=== PATIENT | male | born 1960 | race Caucasian/White ===

== ENCOUNTER 2016-12-23 09:40 | Emergency (ER) | payer BC ==
[~2016-12-23] VITALS: Ht 170.2 cm; Wt 80.6 kg
[2016-12-23 09:42] VITALS: BP 155/64; PULSE 80; RESP 18; TEMP 98.5; O2SAT 95
[2016-12-23] MEDS ORDERED: LIDOCAINE HCL 1% 50 ML VIAL INFIL ONE (10:00)
--- NOTE | 2016-12-23 10:02 | PD ---
HPI Chief Complaint: Laceration/Skin Injury Time Seen by Provider: 09:55 Travel History International Travel<30 days: No Contact w/Intl Traveler<30days: No Traveled to known affect area: No History of Present Illness HPI 56-year-old male presents for evaluation of laceration to left fourth finger. Prior to arrival he reports that he had a pickup truck bed on a cart and the pickup truck bed slid and hit his finger. He now has a laceration which is painful, achy, worse with movement. Denies numbness tingling or range of motion limitation. Last tetanus vaccination 1 year ago. PFS Past Medical History Diminished Hearing: No Headaches: Yes Past Surgical History Oral Surgery: Yes ([facility]) Social History Alcohol Use: Yes (COUPLE BEERS, DAILY; 2 BEERS TODAY (10/09/15)) Tobacco Use: No Substance Use: Yes (MARIJUANA, OCCASIONALLY; LAST USED TODAY (10/09/15)) Allergies-Medications (Allergen,Severity, Reaction): Coded Allergies: No Known Allergies (Verified Adverse Reaction, Unknown, 12/23/16) Reported Meds & Prescriptions Reported Meds & Active Scripts Active No Active Prescriptions or Reported Medications Review of Systems General / Constitutional: No: Fever, Chills Musculoskeletal: Positive: Pain, No: Limited ROM Skin: Positive Other (positive for laceration) Neurologic: No: Paresthesia Physical Exam Narrative GENERAL: Well-developed well-nourished male in no acute distress SKIN: Warm and dry. 2 cm jagged laceration to the medial volar aspect of the mid left fourth finger. Mild bleeding with no pulsating blood. HEAD: Atraumatic. Normocephalic. EYES: Pupils equal and round. No scleral icterus. No injection or drainage. ENT: No nasal bleeding or discharge. Mucous membranes pink and moist. NECK: Trachea midline. No JVD. CARDIOVASCULAR: Regular rate and rhythm. No murmur appreciated. RESPIRATORY: No accessory muscle use. Clear to auscultation. Breath sounds equal bilaterally. MUSCULOSKELETAL: Skin as noted above. The patient maintains full sensation on the medial and lateral aspect of the distal left fourth finger. Range of motion is preserved. Capillary refill is preserved. NEUROLOGICAL: Awake and alert. No obvious cranial nerve deficits. Motor grossly within normal limits. Normal speech. Data Data Last Documented VS Vital Signs Date Time Temp Pulse Resp B/P (MAP) Pulse Ox O2 Delivery O2 Flow Rate FiO2 12/23/16 09:42 98.5 80 18 155/64 (94) 95 Orders Orders Finger ([id number]) (12/23/16 ) Lidocaine 1% Inj (50 Ml) (Xylocaine 1% I (12/23/16 10:00) Splint Or Brace Apply/Monitor (12/23/16 10:52) Ed Discharge Order (12/23/16 10:52) [facility] Medical Decision Making Medical Screen Exam Complete: Yes Emergency Medical Condition: Yes Medical Record Reviewed: Yes Differential Diagnosis Cutaneous laceration, tissue avulsion, tendon laceration, open fracture Narrative Course X-ray imaging will be obtained. X-ray imaging reveals no acute fracture. The laceration was repaired with sutures, he verbally consented. He is stable for discharge. Finger splint applied. Procedures Procedure Narrative LACERATION LOCATION: Left fourth finger LENGTH: 2 cm NUMBER OF STITCHES/RAMIREZ: 8 REPAIR: The area of the laceration was prepped with Betadine and sterilely draped. The laceration was infiltrated with 1% lidocaine transthecal block. The wound was copiously irrigated and explored without evidence of foreign body , tendon injury or neurovascular injury. The wound was closed using 4-0 prolene simple interrupted. This was a single layer repair. A sterile dressing was applied. The patient was advised to keep the dressing clean and dry. Patient tolerated the procedure well. Diagnosis Primary Impression: Laceration of left hand Qualified Codes: S61.412A - Laceration without foreign body of left hand, initial encounter Additional Instructions: Wash daily with soap and water and apply antibiotic cream twice a day. Minimize use of left fourth finger. Return in approximately 14 days for suture removal. Med/Other Pt SpecificInfo: Wound Care, Orthopedic Instructions Scripts No Active Prescriptions or Reported Meds Disposition: 01 DISCHARGE HOME Condition: Stable Eugene Alexander Dec 23, 2016 10:02
--- NOTE | 2016-12-23 10:40 | RADRPT ---
EXAM DATE/TIME: 12/23/2016 10:14 [facility] COMPARISON: FINGER LEFT 4TH DIGIT ([id number]), October 09, 2015, 19:41. INDICATIONS : Left 4th digit laceration. MEDICAL HISTORY : None. SURGICAL HISTORY : None. ENCOUNTER: Initial ACUITY: 1 day PAIN SCORE: 7/10 LOCATION: Left 4th digit FINDINGS: 3 views of the left hand fourth digit demonstrate no acute fracture or dislocation. There is a soft t issue laceration along the volar aspect of the mid fourth digit anterior to the middle phalanx. No ra diopaque foreign body is identified in the adjacent middle phalanx demonstrates no abnormality. The r emaining left hand structures demonstrate no acute finding. 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 CONCLUSION: Laceration at the volar aspect of the mid fourth digit. There is no radiopaque foreign body or acute osseous abnormality. Negrito Vargas MD on December 23, 2016 at 10:37 Board Certified Radiologist. This report was verified electronically.
== END 2016-12-23 11:06 | disposition home or self-care (01) ==
LOC: PHEFT 09:40
DX: S61.215A Laceration without foreign body of left ring finger without damage to nail, initial encounter (principal); W20.8XXA Other cause of strike by thrown, projected or falling object, initial encounter
CPT/HCPCS: 12001; 73140

== ENCOUNTER 2017-03-18 17:39 | Emergency (ER) | payer BC ==
[~2017-03-18] VITALS: Ht 170.2 cm; Wt 86.0 kg
[2017-03-18 17:47] VITALS: BP 137/75; PULSE 100; RESP 16; TEMP 97.7; O2SAT 95
[2017-03-18] MEDS ORDERED: LIDOCAINE 1%/EPINEPHrine 1:100,000 SOLN 50 ML VIAL INFIL ONE (19:30)
--- NOTE | 2017-03-18 19:44 | PD ---
HPI Chief Complaint: Laceration/Skin Injury Time Seen by Provider: 19:18 Travel History International Travel<30 days: No Contact w/Intl Traveler<30days: No Traveled to known affect area: No History of Present Illness HPI Patient comes to the emergency department complaining of a laceration to his right forearm that occurred shortly prior to arrival. Patient states that he was opening up a new knife that was uncovered only open the package when he accidentally cut himself with a new knife on the form. Patient reports applying pressure and coming to the emergency department. Patient denies doing anything else for this. Patient denies any pain. Denies any numbness or tingling. Denies any decreased range of motion. Denies anything makes it better or worse. Patient reports his tetanus shot is up-to-date. [facility] Past Medical History Diminished Hearing: No Headaches: Yes Tetanus Vaccination: < 5 Years Past Surgical History Oral Surgery: Yes (TADEO) Social History Alcohol Use: Yes (COUPLE BEERS, DAILY; 2 BEERS TODAY (10/09/15)) Tobacco Use: No Substance Use: Yes (MARIJUANA, OCCASIONALLY; LAST USED TODAY (10/09/15)) Allergies-Medications (Allergen,Severity, Reaction): Coded Allergies: No Known Allergies (Verified Adverse Reaction, Unknown, 03/18/17) Reported Meds & Prescriptions Reported Meds & Active Scripts Active Active Prescriptions or Reported Medications Unobtainable Review of Systems Except as stated in HPI: all other systems reviewed are Neg Physical Exam Narrative GENERAL: Well-developed, overly nourished, in no acute distress, and non-ill appearing. SKIN: Small superficial laceration of the volar surface of the right forearm midshaft. No foreign body. No crepitus. Neurovascularly intact distally. Full range of motion distally. HEAD: Atraumatic. Normocephalic. EYES: Pupils equal and round. EOMI. No scleral icterus. No injection or drainage. ENT: No nasal bleeding or discharge. Mucous membranes pink and moist. NECK: Trachea midline. Supple. No nuclear rigidity. CARDIOVASCULAR: Radial pulses 2+, intact, and equal bilaterally. Capillary refill less than 2 seconds. RESPIRATORY: No accessory muscle use. No respiratory distress. MUSCULOSKELETAL: No obvious deformities. No clubbing. No cyanosis. No edema. Full range of motion. Wrist: FROM and equal BL with passive flexion, extension , and pronation/supination. Capillary refill less than 2 seconds distal to injury and equal BL. FROM distal to injury and equal BL. Strength distal to injury equal BL. NV intact distal to injury. Flexion and extension of thumb equal BL. Equal strength and movement with abduction/adductions of BL fingers. Title Coordinator strength equal BL. No tenderness to the anatomical snuffbox. NEUROLOGICAL: Awake and alert. No obvious cranial nerve deficits. Motor grossly within normal limits. Normal speech. PSYCHIATRIC: Appropriate mood and affect; insight and judgment normal. Data Data Last Documented VS Vital Signs Date Time Temp Pulse Resp B/P (MAP) Pulse Ox O2 Delivery O2 Flow Rate FiO2 03/18/17 17:47 97.7 100 16 137/75 (95) 95 Orders Orders Lidocai-Epi 1%-1:100,000 Inj (Xylocaine- (03/18/17 19:30) Ed Discharge Order (03/18/17 19:44) [facility] Medical Decision Making Medical Screen Exam Complete: Yes Emergency Medical Condition: Yes Differential Diagnosis Laceration, abrasion, skin tear Narrative Course The patient suffered laceration/s to the extremity. There was no evidence to suggest foreign bodies. Visual and tactile exams were unremarkable without evidence of foreign body at this time. There was no evidence of neurovascular injury. The patient had a normal distal vascular exam, and had full normal motor and sensory exams. There was also no evidence or tendon injury, with normal distal full range of motions, flexion, extension, abduction, adduction and opponens. There was no evidence of local joint space involvement at this time. The patient was irrigated with copious sterile normal saline and primary repair was performed. Please see procedure note. The patient was given signs and symptom warnings for infection, such as increasing pain, redness, swelling, associated heat, pus or fever. The patient was warned of possible unseen foreign body and instructed to return immediately if signs or symptoms develop. The patient was given instructions for timely follow up and for removal. The patient agreed with plan of care. Patient in no obvious distress upon re-evaluation. Any questions/concerns in reference to patient diagnosis/condition discussed and clarified prior to patient's discharge. Reinforced sheer importance of close follow up with patient 's primary physician or primary care clinic. Instructed patient to return to ED immediately, if symptoms return/worsen. Patient showed understanding of above instructions. Further instructions and recommendations were detailed in discharge paperwork. Patient ambulated without difficulty out of ED at discharge. Procedures Procedure Narrative LACERATION REPAIR LOCATION: Volar surface right forearm LENGTH: Approximately 3 cm NUMBER OF STITCHES/RAMIREZ: 2 simple mattress and one simple interrupted REPAIR: Verbal consent was obtained. The area of the laceration was cleaned and prepped. The laceration was infiltrated with lidocaine with epi. The wound was copiously irrigated and explored without evidence of foreign body, bony involvement, ligament injury, tendon injury, or neurovascular injury. The wound was closed using 4-0 Ethilon. This was a single layer repair. A sterile dressing was applied by nurse. The patient was advised to keep the affected area as clean and dry as possible using soap and water. There were no complications. Patient tolerated the procedure well. Diagnosis Primary Impression: Forearm laceration Qualified Codes: S51.811A - Laceration without foreign body of right forearm, initial encounter Referrals: [facility] Patient Instructions: Care For Your Stitches (ED), General Instructions, Laceration (ED) Additional Instructions: Follow-up with your primary care physician and return here in 10-14 days for suture removal. Keep wound dry and clean as possible using soap and water. Use Neosporin to promote healing. Do not soak or submerge wound. Return to the emergency department if symptoms get worse. Scripts No Active Prescriptions or Reported Meds Disposition: 01 DISCHARGE HOME Condition: Stable Zheng Fitch Mar 18, 2017 19:44
== END 2017-03-18 20:39 | disposition home or self-care (01) ==
LOC: PHED 17:39 → PHEFT 20:39
DX: S51.811A Laceration without foreign body of right forearm, initial encounter (principal); W26.0XXA Contact with knife, initial encounter
CPT/HCPCS: 12002